=== PATIENT | female | born 1960 | race Caucasian/White ===

== ENCOUNTER 2025-01-21 21:04 | Emergency (ER) | payer MEDICARE, OTHER ==
[~2025-01-21] VITALS: Ht 160 cm; Wt 75.0 kg
[2025-01-22] MEDS ORDERED: KETOROLAC 30 MG/ML 1 ML VIAL IV ONE
[2025-01-22] MEDS: FAMOTIDINE 20 MG TAB PO ONE (00:18)
[2025-01-22] MEDS: dexAMETHasone 4 MG/ML 1 ML VIAL PO ONE (00:18)
[2025-01-22] MEDS: CLINDAMYCIN 600 MG in IV 1 EA IV ONE (00:19)
[2025-01-22] MEDS: ACETAMINOPHEN *IV* 1,000 MG in IV 1 EA IV ONE ×2 (00:19→07:47)
[2025-01-22 00:24] LABS: BASO # 0.0 10^3/uL (0.0-0.2); BASO % 0.2 % (0.0-1.0); EOS # 0.1 10^3/uL (0.0-0.5); EOS % 0.9 % (0.0-3.0); LYMPH # 1.6 10^3/uL (1.5-5.0); LYMPH % 12.5 % (24.0-44.0); MONO # 1.0 10^3/uL (0.0-0.8); MONO % 7.5 % (2.0-8.0); NEUTROPHILS # 10.2 10^3/uL (1.5-8.5); NEUTROPHILS % 78.6 % (36.0-66.0); PLATELET COUNT, AUTOMATED 183 10^3/uL (150-450)
[2025-01-22 00:37] LABS: ERYTHROCYTE SEDIMENTATION RATE 28 mm/hr (0-30)
[2025-01-22 00:57] LABS: ALT/SGPT 45.0 U/L (7.0-40); AST/SGOT 34.0 U/L (<34); C REACTIVE PROTEIN QUANTITATIV 7.14 MG/DL (<1.0); CALCIUM LEVEL 9.2 MG/DL (8.3-10.6); CARBON DIOXIDE LEVEL 26.0 MMOL/L (20-31); CHLORIDE LEVEL 105.0 MMOL/L (98-107); CREATININE FOR GFR 0.88 MG/DL (0.55-1.30); GLOMERULAR FILTRATION RATE 72.9 (>45); POTASSIUM SERUM 4.1 MMOL/L (3.5-5.1); SODIUM LEVEL 141.0 MMOL/L (136-145)
[2025-01-22] MEDS ORDERED: ISOVUE-370 76% 100 ML VIAL As Ordered ONE (00:59)
[2025-01-22] MEDS ORDERED: MORPHINE 2 MG/ML 1 ML VIAL IV PRN (07:15)
[2025-01-22] MEDS ORDERED: PERCOCET 5MG/325MG TAB PO PRN (07:15)
[2025-01-22] MEDS ORDERED: NALOXONE INJ 0.4 MG/1 ML VIAL IV PRN (07:15)
[2025-01-22] MEDS ORDERED: ACET-861 PO (07:16)
[2025-01-22] MEDS ORDERED: ACET-1593 PO (07:16)
[2025-01-22] MEDS ORDERED: AMOX875T2 PO (07:16)
[2025-01-22] MEDS ORDERED: IBUP-1114 PO (07:16)
[2025-01-22] MEDS: KETOROLAC 30 MG/ML 1 ML VIAL IV SCH (07:48)
[2025-01-22] MEDS: LR 1,000 ML IV ONE (08:15)
[2025-01-22] MEDS: AMPICILLIN SOD/SULBACTAM SOD 3 GM in DEXTROSE 5% (D5W) MINI-BAG PLU 100 ML IV ONE (08:17)
[2025-01-22] MEDS ORDERED: ACETAMINOPHEN 500 MG TAB PO PRN (09:00)
[2025-01-22] MEDS ORDERED: CHLORASEPTIC SPRAY MT PRN (09:00)
[2025-01-22] MEDS ORDERED: ONDANSETRON 4MG 2ML VIAL IV PRN (09:00)
[2025-01-22] MEDS ORDERED: HOME MED LIST COMPLETE! XX SCH (09:10)
[2025-01-22 09:43] VITALS: BP 136/83; TEMP 97.6; O2SAT 97
[2025-01-22] MEDS ORDERED: AMPICILLIN SOD/SULBACTAM SOD 3 GM in DEXTROSE 5% (D5W) MINI-BAG PLU 100 ML IV SCH (14:00)
== END 2025-01-22 09:46 | disposition home or self-care (01) ==
LOC: M ED 21:04
DX: K08.89 Other specified disorders of teeth and supporting structures (principal); K11.20 Sialoadenitis, unspecified; R73.03 Prediabetes; F32.A Depression, unspecified; F41.9 Anxiety disorder, unspecified; E03.9 Hypothyroidism, unspecified; I12.9 Hypertensive chronic kidney disease with stage 1 through stage 4 chronic kidney disease, or unspecified chronic kidney disease; K57.92 Diverticulitis of intestine, part unspecified, without perforation or abscess without bleeding; K21.9 Gastro-esophageal reflux disease without esophagitis; Z88.2 Allergy status to sulfonamides; Z88.1 Allergy status to other antibiotic agents
CPT/HCPCS: 70355; 70487; 80053; 85025; 85652; 86140; 87040; 96365; 96366; 96367; 96368; 96375; 99284; J0131; J0295; J0737; J1100; J1885; Q9967